=== PATIENT | female | born 1950 | race Caucasian/White ===

== ENCOUNTER 2021-01-18 04:31 | Day surgery (SDC) | payer OTHER ==
[2021-01-17 15:25] VITALS: BMI 31.4
[2021-01-18] MEDS ORDERED: LIDOCAINE HCL 1%, 10 MG/ML (20ML VIAL) ONE ×2 (09:45→10:08)
[2021-01-18] MEDS ORDERED: MIDAZOLAM HCL 2 MG/2 ML SINGLE DOSE VIAL ONE (10:07)
[2021-01-18] MEDS ORDERED: CLINDAMYCIN 600 MG PREMIX BAG IVPB ONE (15:00)
[2021-01-18] MEDS ORDERED: LIDOCAINE HCL 1%, 10 MG/ML (20ML VIAL) INF ONE (15:22)
[2021-01-18] MEDS ORDERED: ONDANSETRON 4 MG/2 ML VIAL IVPUSH PRN (15:56)
[2021-01-18] MEDS ORDERED: oxyCODONE HCL 5 MG TABLET PO PRN ×2 (15:56)
[2021-01-18] MEDS ORDERED: LACTATED RINGERS SOLUTION 1,000 ML IV SCH (16:00)
[2021-01-18 18:48] VITALS: BP 143/85; PULSE 68; TEMP 97.4
== END 2021-01-18 18:25 | disposition home or self-care (01) ==
LOC: JASU-SURG 04:31
PROVIDERS: ATTEND Surgery
PROC: 0HBU0ZZ Excision of Left Breast, Open Approach (ICD-10-PCS; principal; 2021-01-18 10:00)
DX: D05.12 Intraductal carcinoma in situ of left breast (principal)
CPT/HCPCS: 19281; 76098-TC-FY; 82962; 88307-TC; 88341-TC; 88342-TC; 94760

== ENCOUNTER 2021-03-01 04:21 | Day surgery (SDC) | payer OTHER ==
[2021-03-01] MEDS ORDERED: DEXMEDETOMIDINE HCL 200 MCG/2 ML IVPB ONE (14:00)
[2021-03-01] MEDS ORDERED: PROPOFOL 20 ML ONE ×2 (14:04)
[2021-03-01] MEDS ORDERED: SUCCINYLCHOLINE CHLORIDE 200 MG/10 ML SYRINGE ONE (14:05)
[2021-03-01] MEDS ORDERED: LIDOCAINE HCL 2% JELLY (5 ML/TUBE) ONE (14:08)
[2021-03-01] MEDS ORDERED: ceFAZolin SODIUM 1 GM VIAL ONE (14:08)
[2021-03-01] MEDS ORDERED: CLINDAMYCIN PHOSPHATE 600 MG/4 ML VIAL ONE (15:20)
[2021-03-01] MEDS ORDERED: CLINDAMYCIN 900 MG PREMIX BAG IVPB ONE (15:30)
[2021-03-01] MEDS ORDERED: ONDANSETRON 4 MG/2 ML VIAL IVPUSH PRN (18:12)
[2021-03-01] MEDS ORDERED: oxyCODONE HCL 5 MG TABLET PO PRN (18:31)
[2021-03-01 18:34] VITALS: PULSE 69; TEMP 97.7
[2021-03-01] MEDS ORDERED: oxyCODONE HCL 5 MG TABLET PO ONE (18:45)
[2021-03-01 19:07] VITALS: BP 148/85
== END 2021-03-01 19:15 | disposition home or self-care (01) ==
LOC: JASU-SURG 04:21
PROVIDERS: ATTEND Surgery
PROC: 0HBU0ZZ Excision of Left Breast, Open Approach (ICD-10-PCS; principal; 2021-03-01 13:30)
DX: C50.912 Malignant neoplasm of unspecified site of left female breast (principal)
CPT/HCPCS: 78195-TC; 94760; A9541